=== PATIENT | female | born 1995 | race American Indian/Alaskan Native ===

== ENCOUNTER 2018-01-07 12:35 | Outpatient (CLI) | payer OTHER, MEDICAID ==
[2018-01-07] MEDS ORDERED: LACTATED RINGERS 500 ML IV ONE (13:01)
[2018-01-07 13:20] VITALS: BP 109/66
[2018-01-07 14:24] LABS: Bacteria,Urine 1+ /HPF (Negative); Bilirubin,Urine NEG (Negative); Blood,Urine NEG (Negative); Color,Urine Yellow (Yellow); Protein,Urine <15 mg/dL mg/dL (Negative); Urobilinogen,Urine < 2.0 mg/dL (<2.0)
== END 2018-01-07 15:33 | disposition home or self-care (01) ==
LOC: TRG 12:35
PROVIDERS: ATTEND Obstetrics & Gynecology
DX: O47.03 False labor before 37 completed weeks of gestation, third trimester (principal); Z3A.33 33 weeks gestation of pregnancy
CPT/HCPCS: 59025; 81001

== ENCOUNTER 2018-02-12 13:02 | Outpatient (CLI) | payer MEDICAID ==
[2018-02-12 13:40] VITALS: BP 111/65
[2018-02-12] MEDS ORDERED: LACTATED RINGERS 500 ML IV ONE (13:47)
[2018-02-12] MEDS ORDERED: LACTATED RINGERS 1,000 ML IV SCH (14:00)
[2018-02-12 14:07] LABS: Bilirubin,Urine NEG (Negative); Blood,Urine NEG (Negative); Color,Urine Yellow (Yellow); Mucus,Urine FEW /HPF; Protein,Urine <15 mg/dL mg/dL (Negative); Urobilinogen,Urine < 2.0 mg/dL (<2.0)
== END 2018-02-12 14:31 | disposition home or self-care (01) ==
LOC: TRG 13:02
PROVIDERS: ATTEND Obstetrics & Gynecology
DX: O47.03 False labor before 37 completed weeks of gestation, third trimester (principal)
CPT/HCPCS: 59025; 81001

== ENCOUNTER 2018-04-23 05:41 | Inpatient (IN) | payer MEDICAID ==
--- NOTE | 2018-04-23 06:03 | History and Physical Report ---
History of Present Illness Date of examination: 04/23/18 Date of admission: 04/23/18 05:41 Chief complaint: Scheduled repeat C Section History of present illness: Pt is a 23yo BF EDC 04/29/18; EGA 39 1/7 weeks presents for a Repeat C Section due to Uterine fibroids and Breech presentation. She received care at [facility] since 9 weeks and co-managed by [facility] for multiple issues including +RPR, Sickle cell trait, + Chlamydia, history of PE, uterine fibroids and anemia. records are available and GBS is Positive. Past History Past Medical History: lung disease (h/o PE) Past Surgical History: section NUTRITIONALIST History: fibroids Family/Genetic History: sickle cell/trait Social history: no significant social history, single - Obstetrical History Expected Date of Delivery: 04/29/18 Actual Gestation: 39 Week(s) 1 Day(s) : 2 Medications and Allergies Allergies Allergy/AdvReac Type Severity Reaction Status Date / Time No Known Allergies Allergy Verified 07/30/15 07:12 Home Medications Medication Instructions Recorded Confirmed Last Taken Type Pnv,Calcium 72/Iron/Folic Acid 1 each PO QDAY #30 tablet 03/22/15 11/11/15 Unknown Rx [ Vitamin with Low Iron] Ferrous Sulfate [Feosol 325 MG tab] 325 mg PO BID #60 tablet 11/08/15 Unknown Rx HYDROcodone/APAP 5-325 [[place] 1 each PO Q6HR PRN #30 tablet 11/08/15 Unknown Rx 5/325] Vit Calc,Iron,Folic 1 each PO DAILY #30 tablet 11/08/15 Unknown Rx [ Vitamins] Ibuprofen [Motrin] 800 mg PO Q8HR PRN #30 tablet 03/14/16 Unknown Rx Review of Systems All systems: negative - Physical Exam Breasts: Positive: deferred Cardiovascular: Regular rate Lungs: Positive: Clear to auscultation Abdomen: Positive: normal appearance Genitourinary (Female): Positive: normal external genitalia Vagina: Positive: normal moisture Uterus: Positive: enlarged Extremities: Positive: normal - Obstetrical FHR: category 1 Uterine Contraction Monitor Mode: External Results Result Diagrams: 04/23/18 06:30 All other labs normal. Assessment and Plan - Patient Problems (1) 39 weeks gestation of Onset Date: 04/23/18 Current Visit: Yes Status: Acute Plan to address problem: A: IUP @ 39 1/7 weeks Previous C Section Breech presentation Uterine fibroids P: Admit for a Repeat C Section (2) Previous section complicating Onset Date: 04/23/18 Current Visit: Yes Status: Acute (3) Breech presentation Onset Date: 04/23/18 Current Visit: Yes Status: Acute Qualifiers: Fetus number: single or unspecified fetus Qualified Code(s): O32.1XX0 - Maternal care for breech presentation, not applicable or unspecified (4) Fibroid uterus Onset Date: 04/23/18 Current Visit: No Status: Acute Qualifiers: Uterine leiomyoma location: intramural, submucous, and subserous Qualified Code(s): D25.1 - Intramural leiomyoma of uterus; D25.0 - Submucous leiomyoma of uterus; D25.2 - Subserosal leiomyoma of uterus (5) History of pulmonary embolism Onset Date: 04/23/18 Current Visit: No Status: Resolved
[2018-04-23] MEDS ORDERED: LACTATED RINGERS 1,000 ML ONE (06:08)
[2018-04-23] MEDS ORDERED: PEPCID IV ONE (06:44)
[2018-04-23] MEDS ORDERED: BICITRA PO ONE (06:44)
[2018-04-23] MEDS ORDERED: REGLAN IV ONE (06:44)
[2018-04-23] MEDS ORDERED: LACTATED RINGERS 1,000 ML IV SCH (07:00)
[2018-04-23] MEDS ORDERED: PITOCin/NS 20 UNIT/1000ML DRIP 20 UNITS/1,000 ML BAG IV SCH ×2 (07:00→11:00)
[2018-04-23 07:08] LABS: Basophils % (Auto) 0.3 % (0.0-1.8); Eosinophils % (Auto) 0.3 % (0.0-4.3); Hematocrit 30.9 % (30.3-42.9); Hemoglobin 10.3 gm/dl (10.1-14.3); Lymphocytes # (Auto) 1.7 K/mm3 (1.2-5.4); Lymphocytes % (Auto) 23.2 % (13.4-35.0); Mean Corpuscular HGB Conc 33 % (30-34); Mean Corpuscular Volume 76 fl (79-97); Monocytes # (Auto) 0.6 K/mm3 (0.0-0.8); Monocytes % (Auto) 8.5 % (0.0-7.3); Platelet Count 264 K/mm3 (140-440); Red Blood Count 4.08 M/mm3 (3.65-5.03); Red Cell Distribution Width 16.6 % (13.2-15.2)
[2018-04-23 07:11] LABS: Mean Corpuscular Hemoglobin 25 pg (28-32)
[2018-04-23] MEDS ORDERED: SUBLIMAZE ONE (07:12)
[2018-04-23] MEDS ORDERED: ZOFRAN ONE (08:51)
[2018-04-23] MEDS ORDERED: ASTRAMORPH PF 10MG/10ML ONE (08:52)
[2018-04-23] MEDS ORDERED: NACL 0.9% IR ONE (09:00)
[2018-04-23] MEDS ORDERED: WATER FOR IRRIG STERILE IR ONE (09:00)
[2018-04-23] MEDS ORDERED: PHENERGAN PR PRN (09:04)
[2018-04-23] MEDS ORDERED: NARCAN 0.4 MG/1 ML IV PRN ×2 (09:04→10:35)
[2018-04-23] MEDS ORDERED: ZOFRAN IV PRN (09:04)
[2018-04-23] MEDS ORDERED: PHENERGAN PO PRN (09:04)
--- NOTE | 2018-04-23 09:04 | Anesthesia Consultation ---
Anesthesia Consult and Med Hx Date of service: 04/23/18 - Airway Anesthetic Teeth Evaluation: Good ROM Head & Neck: Adequate Mental/Hyoid Distance: Adequate Intubation Access Assessment: Probably Good - Pulmonary Exam CTA: Yes - Cardiac Exam Cardiac Exam: RRR - Pre-Operative Health Status ASA Pre-Surgery Classification: ASA2 Proposed Anesthetic Plan: Epidural, Spinal - Pulmonary Hx Smoking: No Hx Asthma: No COPD: No - Cardiovascular System Hx Hypertension: No Hx Heart Attack/AMI: No - Central Nervous System Hx Seizures: No CVA: No - Endocrine Hx Renal Disease: No Hx Insulin Dependent Diabetes: No Hx Thyroid Disease: No - Hematic Hx Anemia: Yes - Additional Comments Anesthesia Medical History Comments: Health 23yo woman scheduled for repeat c- section. Plan CSE.
--- NOTE | 2018-04-23 09:04 | Anesthesia Day of Surgery ---
Anesthesia Day of Surgery - Day of Surgery Patient Examined: Yes Patient H&P Reviewed: Yes Patient is NPO: Yes
[2018-04-23] MEDS ORDERED: NEO SYNEPHRINE/NS Syringe(OR USE) IV ONE (09:21)
[2018-04-23] MEDS ORDERED: SODIUM CHLORIDE FLUSH SYRINGE 10 ML IV NR ×2 (10:00→11:00)
--- NOTE | 2018-04-23 10:33 | Operative Report ---
Operative Report Operative Report: Date of procedure: 04/23/2018 Pre-operative diagnosis: 1. Intrauterine at 39-1/7 weeks 2. Previous 3. Breech presentation 4. Uterine fibroids Post-operative diagnosis: Same Procedure name(s): Repeat low transverse section Surgeon: Lamberto Campos MD Operations Mgr: None Anesthesia: Spinal anesthesia by Dr. Rivera EBL: 2000 mls Findings: A 3659 g female infant Apgars 8 at 1 minute 8 at 5 minutes. Double footling breech presentation. Uterus with a large fundal myoma. Normal tubes and ovaries bilaterally. Procedure: After the patient was prepped and draped in usual sterile fashion, and after satisfactory level of epidural anesthesia was obtained, the skin knife was used to make a transverse skin incision through the previous skin scar. The incision was excised down to layer of the fascia, which was nicked in the midline and extended laterally using the Bovie cautery. The rectus muscles were dissected off the rectus fascia both superiorly and inferiorly. The rectus bellies in the midline, and the peritoneum was entered under direct visualization. The peritoneal incision was extended superiorly and inferiorly. A bladder flap was created and the bladder blade was then placed. The uterus was scored in a curvilinear linear fashion, entered in the midline revealing clear amniotic fluid. The infant's double footling breech was delivered onto the surgical field, the rest of the 's body was delivered, cord was doubly clamped and cut and the infant was handed to the waiting respiratory team. The placenta was manually removed from the uterus, but the uterus was not removed from its normal anatomical position due to the extensive fibroids. There was significant bleeding from the myometrium, so several sutures of 0 Vicryl suture was placed to achieve hemostasis. After gentle uterine lavage, the incision was inspected and found to be without extensions. It was then closed in 2 layers using 0 Vicryl suture in a running interlocking fashion, the second layer imbricating the first. After good hemostasis was achieved, copious amounts or irrigation was performed, and the gutters were suctioned free of blood and blood clots. The Tisseel sealant was sprayed across the uterine incision. The peritoneum was re-approximated using 3 -0 Vicryl suture in a running interlocking fashion, and then the rectus muscles were re-approximated using 3-0 Vicryl suture in a [id number] configuration. The fascia was then re-approximated using 0 Vicryl suture in running interlocking fashion. The subcutaneous layer was made hemostatic using Bovie cautery, the Tisseel sealant was sprayed across the fascial incision and the skin edges re-approximated using 4-0 Vicryl suture in a sub-cuticular fashion. Patient tolerated the procedure well was transported to recovery in stable condition.
[2018-04-23] MEDS ORDERED: LANSINOH TP PRN (10:35)
[2018-04-23] MEDS ORDERED: MYLICON PO PRN (10:35)
[2018-04-23] MEDS ORDERED: TUCKS PAD TP PRN (10:35)
[2018-04-23] MEDS ORDERED: METHERGINE IM ONE (12:00)
[2018-04-23] MEDS ORDERED: D5LR 1,000 ML IV SCH (12:00)
[2018-04-23] MEDS ORDERED: DILAUDID IV ONE (12:00)
[2018-04-23] MEDS: METHERGINE PO SCH ×2 (14:54→21:17)
[2018-04-23] MEDS: MOTRIN PO PRN ×2 (14:54→21:17)
[2018-04-23] MEDS: PERCOCET 5/325 PO PRN ×2 (14:55→21:19)
[2018-04-23] MEDS: TYLENOL PO SCH ×2 (16:00→22:00)
[2018-04-23] MEDS: ANCEF/NS 1 GM/50 ML 1 GM/50 ML BAG IV SCH (21:16)
[2018-04-23] MEDS ORDERED: MILK OF MAGNESIA PO PRN (22:00)
[2018-04-23] MEDS ORDERED: SENOKOT PO PRN (22:00)
[2018-04-23 23:14] LABS: Hematocrit 27.8 % (30.3-42.9); Hemoglobin 9.4 gm/dl (10.1-14.3)
[2018-04-23] MEDS: TORADOL IV SCH (23:50)
[2018-04-24] MEDS: NUBAIN IV PRN ×2 (02:23→10:02)
[2018-04-24] MEDS: MOTRIN PO PRN ×2 (03:53→13:57)
[2018-04-24] MEDS: PERCOCET 5/325 PO PRN ×2 (03:53→13:57)
[2018-04-24] MEDS: TYLENOL PO SCH (03:53)
[2018-04-24] MEDS: METHERGINE PO SCH ×2 (05:15→13:57)
[2018-04-24] MEDS: ANCEF/NS 1 GM/50 ML 1 GM/50 ML BAG IV SCH (05:15)
[2018-04-24] MEDS: TORADOL IV SCH (05:53)
--- NOTE | 2018-04-24 09:54 | Progress Note ---
Assessment and Plan - Patient Problems (1) 39 weeks gestation of Onset Date: 04/23/18 Current Visit: Yes Status: Resolved (2) Previous section complicating Onset Date: 04/23/18 Current Visit: Yes Status: Resolved (3) Breech presentation Onset Date: 04/23/18 Current Visit: Yes Status: Resolved Qualifiers: Fetus number: single or unspecified fetus Qualified Code(s): O32.1XX0 - Maternal care for breech presentation, not applicable or unspecified (4) Fibroid uterus Onset Date: 04/23/18 Current Visit: No Status: Resolved Qualifiers: Uterine leiomyoma location: intramural, submucous, and subserous Qualified Code(s): D25.1 - Intramural leiomyoma of uterus; D25.0 - Submucous leiomyoma of uterus; D25.2 - Subserosal leiomyoma of uterus (5) Status post Onset Date: 04/24/18 Current Visit: Yes Status: Resolved Plan to address problem: A: S/P Repeat C Section - POD #1 Doing well Uterine fibroids Asymptomatic anemia - stable P: Continue RPOC Anticipate discharge in 24-48hrs. Subjective - Subjective Date of service: 04/24/18 Principal diagnosis: s/p Repeat C Section - POD #1 Interval history: Pt is feeling well, complaining of itching. Tolerating a liquid diet without nausea or vomiting. Bleeding improved. Patient reports: appetite normal, voiding normally, pain well controlled, ambulating normally, no dizzy ambulation, no flatus, no nauseated [place]: doing well, nursing well Objective - Vital Signs Latest vital signs: Vital Signs Temp Pulse Resp BP BP Pulse Ox 04/24/18 08:24 97.9 F 73 18 96/60 04/24/18 04:30 98.4 F 85 20 112/67 98 04/23/18 20:30 98.5 F 69 18 100/60 96 04/23/18 17:07 97.6 F 67 20 105/55 98 04/23/18 11:55 98.6 F 81 18 112/60 98 04/23/18 11:41 81 107/72 Intake and Output 04/23/18 04/24/18 04/24/18 22:59 06:59 14:59 Intake Total 370 120 Output Total 900 1400 500 Balance -530 -1400 -380 Intake: IV 50 ANCEF/NS 1 GM/50 ML 1 gm 50 In 50 ml @ 100 mls/hr IV Q8H [facility] Rx#:[id number] Oral 320 120 Output: Urine 900 1400 500 Indwelling Catheter 900 Void 1400 500 Other: Total, Intake Amount 120 120 Total, Output Amount 400 600 500 # Voids Void 2 1 - Exam Breasts: Present: deferred Cardiovascular: Present: Regular rate Lungs: Present: Clear to auscultation Abdomen: Present: normal appearance, soft Uterus: Present: normal, firm, fundal height below umbilicus Extremities: Present: normal Incision: Present: normal, dry, intact, dressed - Labs Labs: Abnormal lab results 04/23/18 Range/Units 23:00 Hgb 9.4 L (10.1-14.3) gm/dl Hct 27.8 L (30.3-42.9) % Laboratory Tests 04/23/18 04/23/18 04/23/18 06:30 06:30 23:00 WBC 7.4 RBC 4.08 Hgb 10.3 9.4 L Hct 30.9 27.8 L MCV 76 L MCH 25 L MCHC 33 RDW 16.6 H Plt Count 264 Lymph % (Auto) 23.2 Sac % (Auto) 8.5 H Eos % (Auto) 0.3 Baso % (Auto) 0.3 Lymph # 1.7 Sac # 0.6 Eos # 0.0 Baso # 0.0 Seg Neutrophils % 67.7 Seg Neutrophils # 5.0 Blood Type A POSITIVE Antibody Screen Negative
[2018-04-24] MEDS: PRENATAL VITAMIN PO SCH (10:03)
[2018-04-24] MEDS: FEOSOL PO SCH (10:03)
[2018-04-24] MEDS ORDERED: BENADRYL PO PRN (11:25)
[2018-04-24] MEDS ORDERED: M-M-R II VACCINE SUB-Q ONE (12:00)
[2018-04-24] MEDS ORDERED: BENADRYL IV ONE (12:00)
[2018-04-24] MEDS ORDERED: BOOSTRIX IM ONE (12:00)
[2018-04-25] MEDS: PERCOCET 5/325 PO PRN (00:19)
[2018-04-25] MEDS: METHERGINE PO SCH (01:15)
[2018-04-25] MEDS: MOTRIN PO PRN ×2 (06:26→13:14)
[2018-04-25] MEDS: NORCO 5/325 PO PRN ×3 (08:26→21:29)
[2018-04-25] MEDS: PRENATAL VITAMIN PO SCH (13:13)
[2018-04-25] MEDS: FEOSOL PO SCH (13:14)
--- NOTE | 2018-04-25 14:06 | Progress Note ---
Assessment and Plan A: /postop day 2 S/P repeat low transverse section. Anemia. History of PE in the past. P: Continue iron supplementation. Start Lovenox this evening. Subjective - Subjective Date of service: 04/25/18 Principal diagnosis: s/p Repeat C Section - POD #2 Interval history: /postop day 2 S/P repeat LTCS. Patient is doing well. She reports a small amount of lochia. Patient is voiding without difficulty and ambulating well. She reports she is passing gas. She is tolerating a regular diet without nausea or vomiting. Patient denies headache, chest pain, cough, shortness of breath, abdominal pain , leg pain, heavy bleeding, or any other problems. Patient has a history of PE in the past. Will start Lovenox this evening. Patient states she is undecided what she wants to use for control but is considering Paragard copper IUD at 8 weeks . Patient reports: appetite normal, voiding normally, pain well controlled, flatus , ambulating normally [place]: doing well Objective - Vital Signs Latest vital signs: Vital Signs Temp Pulse Resp BP BP Pulse Ox 04/25/18 08:00 98.4 F 79 18 107/56 04/25/18 06:26 18 04/25/18 00:56 99.1 F 81 20 111/64 96 04/25/18 00:19 18 04/24/18 15:01 100.4 F H 84 18 117/53 Intake and Output 04/24/18 04/25/18 04/25/18 23:59 07:59 15:59 Intake Total 120 120 Balance 120 120 Intake: Oral 120 Intake, Free Water 120 Other: Total, Intake Amount 120 # Voids Void 1 - Exam Cardiovascular: Present: Regular rate, Normal S1, Normal S2, No murmurs Lungs: Present: Clear to auscultation Abdomen: Present: normal appearance, soft, normal bowel sounds. Absent: distention, tenderness, guarding, rigidity Uterus: Present: normal, firm, fundal height below umbilicus. Absent: bogginess , tenderness Extremities: Present: normal. Absent: tenderness, edema Incision: Present: normal, dry, intact, warm, dressed
[2018-04-25] MEDS ORDERED: LOVENOX SUB-Q SCH (20:00)
[2018-04-26] MEDS: NORCO 5/325 PO PRN (01:52)
[2018-04-26] MEDS: PERCOCET 5/325 PO PRN ×2 (07:25→13:05)
[2018-04-26] MEDS: PRENATAL VITAMIN PO SCH (13:05)
[2018-04-26] MEDS: FEOSOL PO SCH (13:05)
[2018-04-26 15:34] VITALS: BP 127/68
--- NOTE | 2018-04-26 15:44 | Progress Note ---
Assessment and Plan A: /postop day 3 S/P repeat LTCS. Anemia. Positive RPR: recently treated for syphilis. Bottlefeeding. P: Continue vitamins daily and iron supplements BID at home (pt. states she already has a Rx at home with refills). Advised patient to follow up with Dr. Campos later this week for incision check and for treponema pallidum antibody test; advised her she may also repeat treponema pallidum antibody test in 3-6 months. Advised patient to continue Lovenox at home until she sees Dr. Campos this week for further instructions regarding Lovenox. discharge instructions and warning signs discussed with patient. Advised patient to avoid intercourse, avoid lifting and heavy housework, and avoid driving. Patient voiced understanding of all instructions. Subjective - Subjective Date of service: 04/26/18 Principal diagnosis: s/p Repeat C Section - POD #3 Interval history: /postop day 3 S/P repeat LTCS. Patient is doing well. Patient desires discharge today. Patient reports a small amount of lochia. Bottlefeeding. Patient is voiding without difficulty and ambulating well. She reports she is passing gas. She is tolerating a regular diet without nausea or vomiting. Patient denies headache, dizziness, chest pain, cough, shortness of breath, abdominal pain, leg pain, heavy bleeding, or any other problems. Patient has a history of PE in the past. Patient states she is undecided what she wants to use for control but is considering Paragard copper IUD at 8 weeks . Patient reports: appetite normal, voiding normally, pain well controlled, flatus , ambulating normally : doing well Objective - Vital Signs Latest vital signs: Vital Signs Temp Pulse Resp BP Pulse Ox 04/26/18 15:33 97.9 F 98 H 20 127/68 99 04/26/18 08:00 98.7 F 98 H 18 115/70 99 04/26/18 00:00 98.7 F 78 18 100/63 Intake and Output 04/25/18 04/26/18 04/26/18 23:59 07:59 15:59 Intake Total 300 Balance 300 Intake: Intake, Free Water 300 - Exam Cardiovascular: Present: Regular rate, Normal S1, Normal S2, No murmurs Lungs: Present: Clear to auscultation Abdomen: Present: normal appearance, soft, normal bowel sounds. Absent: distention, tenderness, guarding, rigidity Uterus: Present: normal, firm, fundal height at umbilicus. Absent: bogginess, tenderness Extremities: Present: normal. Absent: tenderness, edema Incision: Present: normal, dry, intact
--- NOTE | 2018-04-26 16:04 | Discharge Summary ---
Providers - Providers Date of Admission: 04/23/18 05:41 Date of discharge: 04/26/18 Attending physician: JOLLY CAMPOS None Primary care physician: JOLLY CAMPOS Hospitalization Reason for admission: section Delivery: Procedure: repeat low transverse Incision: normal, dry, intact Other procedures: none complications: none baby: female Pertinent studies: Labs Hospital course: Normal hospital course. Condition at discharge: Good Disposition: DC-01 TO HOME OR SELFCARE - Discharge Diagnoses (1) Term delivered Status: Acute Plan - Discharge Medications Prescriptions: Ferrous Sulfate [Feosol 325 MG tab] 325 mg PO BID #60 tablet HYDROcodone/APAP 5-325 [[place] 5/325] 1 each PO Q6HR PRN #30 tablet PRN Reason: Pain Ibuprofen [Motrin] 800 mg PO Q8HR PRN #30 tablet PRN Reason: Moder Pain Unrelieved By [place] Vit Calc,Iron,Folic [ Vitamins] 1 each PO DAILY #30 tablet - Provider Discharge Summary Activity: routine, no sex for 6 weeks, no heavy lifting 4 weeks, no strenuous exercise Diet: routine Instructions: routine Additional instructions: Continue your vitamin daily and your iron supplement twice daily at home (pt. states she already has medication at home). Follow up with Dr. Campos in 1 week for incision check, for TPA test, and for further instructions re: Lovenox. Instructed pt. to continue Lovenox daily this week until she sees Dr. Campos. Call your doctor immediately for: * Fever > 100.5 * Heavy vaginal bleeding ( >1 pad per hour) * Severe persistent headache * Shortness of breath * Reddened, hot, painful area to leg or breast * Drainage or odor from incision. * Keep incision clean and dry at all times and follow doctor's instructions regarding bathing/showering - Follow up plan Follow up: JOLLY CAMPOS MD [Primary Care Provider] - 7 Days
== END 2018-04-26 17:30 | disposition home or self-care (01) | DRG 766 ==
LOC: APU 05:41 → OB 12:08
PROVIDERS: ADMIT Obstetrics & Gynecology; ATTEND Obstetrics & Gynecology
PROC: 10D00Z1 Extraction of Products of Conception, Low, Open Approach (ICD-10-PCS; principal; 2018-04-23)
PROC: 3E0234Z Introduction of Serum, Toxoid and Vaccine into Muscle, Percutaneous Approach (ICD-10-PCS; 2018-04-24)
DX: O34.211 Maternal care for low transverse scar from previous cesarean delivery (principal); O32.8XX0 Maternal care for other malpresentation of fetus, not applicable or unspecified; O34.13 Maternal care for benign tumor of corpus uteri, third trimester; O99.824 Streptococcus B carrier state complicating childbirth; D25.2 Subserosal leiomyoma of uterus; O99.02 Anemia complicating childbirth; D25.0 Submucous leiomyoma of uterus; Z3A.39 39 weeks gestation of pregnancy; Z37.0 Single live birth; Z86.711 Personal history of pulmonary embolism; Z23 Encounter for immunization; D57.3 Sickle-cell trait
CPT/HCPCS: 36415; 85014; 85018; 85025; 86592; 86593; 86780; 86850; 86900; 86901; 99211; C9250; G0463; J0690; J1170; J1200; J1650; J1885; J2274; J2300; J2370; J2405; J2590; J2765; J3010; J7120

== ENCOUNTER 2019-05-11 07:50 | Inpatient (IN) | payer MEDICAID, OTHER ==
--- NOTE | 2019-05-10 11:06 | Anesthesia Consultation ---
Anesthesia Consult and Med Hx Date of service: 05/11/19 - Airway Anesthetic Teeth Evaluation: Chipped ROM Head & Neck: Adequate Mental/Hyoid Distance: Adequate Mallampati Class: Class II Intubation Access Assessment: Good - Pre-Operative Health Status ASA Pre-Surgery Classification: ASA1 Proposed Anesthetic Plan: General Nerve Block: TAP - Pulmonary Hx Smoking: No Hx Asthma: No Hx Respiratory Symptoms: No (HX PE 2011 from OCP-denies residual symptoms) COPD: No Hx Pneumonia: No - Cardiovascular System Hx Hypertension: No Hx Heart Attack/AMI: No - Central Nervous System Hx Seizures: No CVA: No Hx Psychiatric Problems: No - Endocrine Hx Renal Disease: No Hx End Stage Renal Disease: No Hx Insulin Dependent Diabetes: No Hx Non-Insulin Dependent Diabetes: No Hx Thyroid Disease: No Hx Hypothyroidism: No Hx Hyperthyroidism: No - Hematic Hx Anemia: Yes Hx Sickle Cell Disease: No - Other Systems Hx Alcohol Use: Yes (Occas) Hx Cancer: No
[2019-05-10 11:13] LABS: Basophils % (Auto) 0.5 % (0.0-1.8); Eosinophils # (Auto) 0.1 K/mm3 (0.0-0.4); Eosinophils % (Auto) 1.2 % (0.0-4.3); Hematocrit 35.3 % (30.3-42.9); Hemoglobin 11.6 gm/dl (10.1-14.3); Lymphocytes # (Auto) 1.4 K/mm3 (1.2-5.4); Lymphocytes % (Auto) 31.4 % (13.4-35.0); Mean Corpuscular HGB Conc 33 % (30-34); Mean Corpuscular Volume 76 fl (79-97); Monocytes # (Auto) 0.3 K/mm3 (0.0-0.8); Monocytes % (Auto) 7.4 % (0.0-7.3); Platelet Count 256 K/mm3 (140-440); Red Blood Count 4.64 M/mm3 (3.65-5.03); Red Cell Distribution Width 15.7 % (13.2-15.2)
[2019-05-11] MEDS ORDERED: LACTATED RINGERS 1,000 ML IV SCH (08:00)
[2019-05-11] MEDS ORDERED: ceFAZolin/Water 2 GM/20 ML 2 GM/20 ML SYRINGE IV NR (08:00)
--- NOTE | 2019-05-11 08:04 | History and Physical Report ---
History of Present Illness Date of examination: 05/11/19 Date of admission: 05/11/19 07:50 Chief complaint: Symptomatic uterine fibroids History of present illness: Pt is a 24yo BF LMP 04/23/19 presents for surgical evaluation and treatment of uterine fibroids. Pelvic u/s showed the uterus measures 7.4 x 6 x 5cm with a 7.6 x 7cm pedunculated fibroid. She now presents for an abdominal myomectomy. 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 Family/Genetic History: none Social history: no significant social history, single - Obstetrical History : 2 Medications and Allergies Allergies Allergy/AdvReac Type Severity Reaction Status Date / Time Estrogens Allergy Blood clots Verified 05/04/19 14:55 Home Medications Medication Instructions Recorded Confirmed Last Taken Type No Known Home Medications [No 05/04/19 05/04/19 Unknown History Reported Home Medications] Review of Systems All systems: negative - Vital Signs Vital signs: Vital Signs Temp Pulse Resp BP Pulse Ox 97.4 F L 64 18 122/84 100 05/10/19 10:45 05/10/19 10:45 05/10/19 10:45 05/10/19 10:45 05/10/19 10:45 Temp Pulse Resp BP Pulse Ox 97.4 F L 64 18 122/84 100 05/10/19 10:45 05/10/19 10:45 05/10/19 10:45 05/10/19 10:45 05/10/19 10:45 - Physical Exam Breasts: Positive: deferred Cardiovascular: Regular rate Lungs: Positive: Clear to auscultation Abdomen: Positive: normal appearance Genitourinary (Female): Positive: normal external genitalia Vagina: Positive: normal moisture Uterus: Positive: enlarged Extremities: Positive: normal Results Result Diagrams: 05/10/19 10:50 Abnormal lab results 05/10/19 Range/Units 10:50 MCV 76 L (79-97) fl MCH 25 L (28-32) pg RDW 15.7 H (13.2-15.2) % [place] % (Auto) 7.4 H (0.0-7.3) % All other labs normal. Ultrasound: report reviewed Assessment and Plan - Patient Problems (1) Fibroid uterus Onset Date: 05/11/19 Current Visit: No Status: Chronic Qualifiers: Uterine leiomyoma location: intramural, submucous, and subserous Qualified Code(s): D25.1 - Intramural leiomyoma of uterus; D25.0 - Submucous leiomyoma of uterus; D25.2 - Subserosal leiomyoma of uterus Plan to address problem: A: Symptomatic uterine fibroids History of Pulmonary embolism P: Admit for an Abdominal myomectomy. (2) History of pulmonary embolism Onset Date: 04/23/18 Current Visit: No Status: Resolved
[2019-05-11] MEDS ORDERED: ONDANSETRON 4 MG/2 ML INJ IV PRN ×2 (08:05→12:31)
[2019-05-11] MEDS ORDERED: fentaNYL 100 MCG/2 ML INJ IV PRN (08:05)
[2019-05-11] MEDS ORDERED: fentaNYL 100 MCG/2 ML INJ IV ONE (08:05)
[2019-05-11] MEDS ORDERED: ACETAMINOPHEN 325 MG TAB PO NR (08:07)
--- NOTE | 2019-05-11 08:10 | Anesthesia Day of Surgery ---
Anesthesia Day of Surgery - Day of Surgery Patient Examined: Yes Patient H&P Reviewed: Yes Patient is NPO: Yes
[2019-05-11] MEDS ORDERED: METHYLENE BLUE 50 MG/10 ML AMP ONE (08:30)
[2019-05-11] MEDS ORDERED: SODIUM CHLORIDE 0.9% 100 ML ONE (08:30)
[2019-05-11] MEDS ORDERED: MIDAZOLAM 2 MG/2 ML INJ IV NR (09:00)
[2019-05-11] MEDS ORDERED: CELECOXIB 200 MG CAP PO NR (09:00)
[2019-05-11] MEDS ORDERED: GABAPENTIN 300 MG CAP PO NR (09:00)
[2019-05-11] MEDS ORDERED: dexAMETHasone 4 MG/ML VIAL ONE (10:18)
[2019-05-11] MEDS ORDERED: BUPIVACAINE-EPINEPHRINE/PF 0.25%-1:200,000 (30 ML) VIAL INFILTRATI ONE (10:18)
[2019-05-11] MEDS ORDERED: fentaNYL 100 MCG/2 ML INJ ONE (11:29)
[2019-05-11] MEDS ORDERED: LIDOCAINE MPF (2%) 20 MG/1 ML VIAL 5 ML ONE (11:29)
[2019-05-11] MEDS ORDERED: PROPOFOL 200 MG/20 ML VIAL IV ONE (11:30)
[2019-05-11] MEDS ORDERED: ROCURONIUM 50 MG/5 ML INJ IV ONE (11:30)
[2019-05-11] MEDS ORDERED: VASOPRESSIN 20 UNIT/1 ML INJ IM ONE (12:00)
--- NOTE | 2019-05-11 12:30 | Operative Report ---
Operative Report Operative Report: Date of procedure: 05/11/2019 Pre-operative diagnosis: 1. Symptomatic uterine fibroids 2. Menorrhagia Post-operative diagnosis: Same Procedure name(s): Abdominal myomectomy Surgeon: Lamberto Campos M.D. Dump Truck Driver: Heidi Mena CSA Anesthesia: SUJATA Block followed by general endotracheal intubation by Dr. Rivera EBL: Less than 100 mL's Findings: An 8-10 week size myomatous uterus with 1 large pedunculated fibroid. Normal fallopian tubes bilaterally. Normal cystic ovaries bilaterally. Procedure: After the patient was correctly identified, she was prepped and draped in the usual sterile fashion and placed in the dorsal lithotomy position. First the skin knife was used to make a transverse skin incision through the previous skin scar, and the incision was extended down to the fascia which is nicked in the midline and extended laterally using the Bovie cautery. The rectus muscles were dissected off the rectus fascia both superiorly and inferiorly. The rectus bellies midline and the peritoneum was entered under direct visualization. Exploration of the pelvic organs found the uterus to be enlarged approximately 8-10 weeks size with one large peduculated fibroid. The uterus was elevated through the incision and the base of the pedunculated fibroid was infiltrated using Pitressin solution. The serosa was incised and the pedunculated fibroid was removed using sharp dissection and sent to pathology. No other fibroids were palpable. At this point the procedure was co nsidered complete. The uterine cavity was not entered. The serosal layer was re-approximated using several 2-0 Monocryl sutures in interrupted fashion, and then oversewn in a running interlocking fashion. Copious amounts of irrigation was then performed, and the Tisseel sealant was sprayed over the serosal layer. Excellent hemostasis was assured. Interceed was then placed over the serosal layer, and the uterus was returned to his normal anatomical position. The peritoneum was re-approximated using 0 Vicryl suture in a running interlocking fashion, and the rectus muscles loosely re-approximated using 0 Vicryl suture in a [id number] configuration. The fascia was then re-approximated using 0 Vicryl suture in a running interlocking fashion. The subcutaneous layer was made hemostatic using Bovie cautery, and the skin edges were approximated using 4-0 Monocryl suture in a sub-cuticular fashion. The patient tolerated the procedure well and was transferred to recovery in stable condition.
[2019-05-11] MEDS ORDERED: MORPHINE 2 MG/1 ML INJ IV PRN (12:31)
[2019-05-11] MEDS ORDERED: MAGNESIUM HYDROXIDE (MOM) ORAL LIQD UDC PO PRN (12:31)
[2019-05-11] MEDS ORDERED: SUGAMMADEX SODIUM 200 MG/2 ML VIAL IV ONE (12:37)
[2019-05-11] MEDS ORDERED: dexAMETHasone 20 MG/5 ML VIAL ONE (12:52)
[2019-05-11] MEDS ORDERED: D5W/LACTATED RINGERS 1,000 ML IV SCH (13:00)
[2019-05-11] MEDS: HYDROmorphone 1 MG/1 ML INJ IV PRN ×2 (13:45→13:52)
[2019-05-11] MEDS: KETOROLAC 30 MG/1 ML INJ IV SCH ×2 (15:04→20:50)
[2019-05-11] MEDS: ceFAZolin/NS 1 GM/50 ML 1 GM/50 ML BAG IV SCH (20:49)
--- NOTE | 2019-05-11 22:42 | Post Anesthesia Evaluation ---
- Post Anesthesia Evaluation Patient Participated: Yes Airway Patent: Yes Stable Respiratory Function: Yes Nausea/Vomiting: No Temp > 96.8F: Yes Pain Manageable: Yes Adequeate Hydration: Yes Anesthesia Complications: No Block Receding Appropriately: Not Applicable Patient on Ventilator: No
[2019-05-11] MEDS: DOCUSATE SODIUM 100 MG CAP PO SCH (22:45)
[2019-05-12] MEDS: HYDROcodone/ACETAMINOPHEN 5-325 MG TAB PO PRN ×2 (01:28→08:53)
[2019-05-12] MEDS: ceFAZolin/NS 1 GM/50 ML 1 GM/50 ML BAG IV SCH (04:49)
[2019-05-12] MEDS: KETOROLAC 30 MG/1 ML INJ IV SCH ×3 (04:49→10:50)
--- NOTE | 2019-05-12 09:24 | Progress Note ---
Assessment and Plan - Patient Problems (1) Fibroid uterus Onset Date: 05/11/19 Current Visit: No Status: Resolved Qualifiers: Uterine leiomyoma location: intramural, submucous, and subserous Qualified Code(s): D25.1 - Intramural leiomyoma of uterus; D25.0 - Submucous leiomyoma of uterus; D25.2 - Subserosal leiomyoma of uterus (2) History of pulmonary embolism Onset Date: 04/23/18 Current Visit: No Status: Resolved (3) Status post myomectomy Onset Date: 05/12/19 Current Visit: Yes Status: Resolved Plan to address problem: A: S/P Abdominal myomectomy - POD #1 Doing well Asymptomatic anemia - stable P: May go home today. Subjective - Subjective Date of service: 05/12/19 Principal diagnosis: s/p Abdominal myomectomy - POD #1 Interval history: Pt is feeling well s/p an abdominal myomectomy. She is tolerating a reg diet without nausea or vomiting, ambulating and voiding without difficulty. Patient reports: appetite normal, voiding normally, pain well controlled, flatus, ambulating normally, no dizzy ambulation, no nauseated Objective - Vital Signs Latest vital signs: Vital Signs Temp Pulse Resp BP BP Pulse Ox 05/12/19 05:23 97.6 F 49 L 18 110/63 96 05/12/19 00:08 98.4 F 60 20 111/68 97 05/11/19 20:25 99.0 F 74 20 113/62 95 05/11/19 15:25 98.2 F 60 18 115/75 05/11/19 14:30 98.4 F 63 16 120/85 98 05/11/19 14:15 98.0 F 67 12 125/81 98 05/11/19 14:00 70 13 123/81 98 05/11/19 13:52 12 05/11/19 13:45 74 15 135/85 98 05/11/19 13:30 64 12 127/91 100 05/11/19 13:15 76 12 136/86 100 05/11/19 13:10 75 13 130/86 99 05/11/19 13:05 79 12 134/86 99 05/11/19 13:00 98.0 F 81 15 129/76 100 05/11/19 10:39 84 10 L 105/81 99 05/11/19 10:34 52 L 11 L 115/73 100 05/11/19 10:29 57 L 15 130/73 100 05/11/19 09:30 16 05/11/19 09:28 16 05/11/19 09:26 16 Intake and Output 05/11/19 05/12/19 05/12/19 22:59 06:59 14:59 Intake Total 490 220 Output Total 800 1750 Balance -310 -1530 Intake: IV 50 ANCEF/NS 1 GM/50 ML 1 gm 50 In 50 ml @ 100 mls/hr IV Q8H COUNT INCLUDES THE [facility] Rx#:[id number] Oral 440 220 Output: Urine 800 1750 Indwelling Catheter 800 1750 Other: Total, Intake Amount 120 120 Total, Output Amount 800 950 Voiding Method Toilet - Exam Abdomen: Present: normal appearance, soft Extremities: Present: normal Incision: Present: normal, dry, intact, dressed - Labs Labs: Abnormal lab results 05/12/19 Range/Units 03:35 Creatinine 0.5 L (0.7-1.2) mg/dL Laboratory Tests 05/10/19 05/10/19 05/11/19 10:50 10:50 08:30 WBC 4.5 RBC 4.64 Hgb 11.6 Hct 35.3 MCV 76 L MCH 25 L MCHC 33 RDW 15.7 H Plt Count 256 Lymph % (Auto) 31.4 [place] % (Auto) 7.4 H Eos % (Auto) 1.2 Baso % (Auto) 0.5 Lymph # 1.4 [place] # 0.3 Eos # 0.1 Baso # 0.0 Seg Neutrophils % 59.5 Seg Neutrophils # 2.7 Creatinine Estimated GFR HCG, Qual Negative Blood Type A POSITIVE Antibody Screen Negative 05/12/19 05/12/19 03:35 03:35 WBC RBC Hgb 11.0 Hct 34.0 MCV MCH MCHC RDW Plt Count Lymph % (Auto) [place] % (Auto) Eos % (Auto) Baso % (Auto) Lymph # [place] # Eos # Baso # Seg Neutrophils % Seg Neutrophils # Creatinine 0.5 L Estimated GFR > 60 HCG, Qual Blood Type Antibody Screen
[2019-05-12] MEDS: DOCUSATE SODIUM 100 MG CAP PO SCH (09:49)
--- NOTE | 2019-05-12 09:56 | Discharge Summary ---
Providers - Providers Date of Admission: 05/11/19 07:50 Date of discharge: 05/12/19 Attending physician: JOLLY WHITE Primary care physician: STERLING LONG Hospitalization Reason for admission: other (Symptomatic uterine fibroid) Procedure: other (Abdominal myomectomy) Episiotomy: none Incision: normal, dry, intact Other procedures: none complications: none Discharge diagnosis: other (s/p Abdominal myomectomy) Hospital course: Pt is a 24yo BF LMP 04/23/19 who presented for surgical evaluation and treatment of uterine fibroids. Pelvic u/s showed the uterus measures 7.4 x 6 x 5cm with a 7.6 x 7cm pedunculated fibroid. She underwent an uncomplicated abdominal myomectomy. By POD #1 she was tolerating a reg diet without nausea or vomiting, ambulating and voiding without difficulty. She was therefore discharged to home on POD #1 in stable condition. Condition at discharge: Good Disposition: DC-01 TO HOME OR SELFCARE - Discharge Diagnoses (1) Fibroid uterus Status: Resolved Qualifiers: Uterine leiomyoma location: intramural, submucous, and subserous Qualified Code(s): D25.1 - Intramural leiomyoma of uterus; D25.0 - Submucous leiomyoma of uterus; D25.2 - Subserosal leiomyoma of uterus (2) History of pulmonary embolism Status: Resolved (3) Status post myomectomy Status: Resolved Plan - Discharge Medications Prescriptions: Ibuprofen [Motrin] 800 mg PO Q8HR PRN #30 tablet PRN Reason: Pain, Mild (1-3) HYDROcodone/APAP 5-325 [Yulan 5-325 mg TAB] 1 each PO Q6HR PRN #30 tablet PRN Reason: Pain, Moderate (4-6) - Provider Discharge Summary Activity: routine, no sex for 6 weeks, no heavy lifting 4 weeks, no strenuous exercise Diet: routine Instructions: routine Additional instructions: [] Smoking cessation referral if applicable(refer to patient education folder for contact #) [] Refer to [facility] Booklet Call your doctor immediately for: * Fever > 100.5 * Heavy vaginal bleeding ( >1 pad per hour) * Severe persistent headache * Shortness of breath * Reddened, hot, painful area to leg or breast * Drainage or odor from incision. * Keep incision clean and dry at all times and follow doctor's instructions regarding bathing/showering - Follow up plan Follow up: STERLING LONG MD [Primary Care Provider] - 7 Days OJLLY WHITE MD [Staff Physician] - 7 Days
[2019-05-12] MEDS ORDERED: ENOXAPARIN 40 MG/0.4 ML INJ SUB-Q SCH (10:00)
[2019-05-12 13:33] VITALS: BP 108/49
== END 2019-05-12 13:30 | disposition home or self-care (01) | DRG 743 ==
LOC: 3A 07:50 → OB 13:23
PROVIDERS: ADMIT Obstetrics & Gynecology; ATTEND Obstetrics & Gynecology
PROC: 0UB90ZZ Excision of Uterus, Open Approach (ICD-10-PCS; principal; 2019-05-11)
PROC: 3E0T3BZ Introduction of Anesthetic Agent into Peripheral Nerves and Plexi, Percutaneous Approach (ICD-10-PCS; 2019-05-11)
DX: D25.1 Intramural leiomyoma of uterus (principal); D25.0 Submucous leiomyoma of uterus; D25.2 Subserosal leiomyoma of uterus; Z86.711 Personal history of pulmonary embolism; N92.0 Excessive and frequent menstruation with regular cycle; D64.9 Anemia, unspecified
CPT/HCPCS: 36415; 64450; 82565; 84703; 85014; 85018; 85025; 86850; 86900; 86901; 88305; G0378; C9250; J0690; J1100; J1170; J1650; J1885; J2250; J2405; J2704; J3010; J7120; J7121; Q9968